=== PATIENT | female | born 1970 | race Caucasian/White ===

== ENCOUNTER → 2016-11-07 | Outpatient (CLI) | payer OTHER ==
[~2016-11-07] MED LIST: ACET-1256 PO; PENI-82 PO
== END | disposition home or self-care (01) ==
LOC: C.PAPS 13:30
PROVIDERS: ATTEND Obstetrics & Gynecology
DX: Z12.4 Encounter for screening for malignant neoplasm of cervix (principal); Z11.51 Encounter for screening for human papillomavirus (HPV)

== ENCOUNTER → 2016-11-23 | Outpatient (CLI) | payer OTHER ==
--- NOTE | 2016-11-23 13:34 | MAMMOGRAPHY REPORT ---
BILATERAL DIGITAL DIAGNOSTIC MAMMOGRAM TOMOSYNTHESIS WITH CAD AND TARGETED LEFT ULTRASOUND: 11/23/2016 CLINICAL HISTORY: Six-month follow-up of a possible area of distortion seen within the left 4:[address] on ultrasound. The patient presented for biopsy however the finding was not confidently visualize d therefore biopsy was not performed. The patient also had a biopsy of a left 10:00 breast mass in [facility] which yielded benign pathology. The patient reports no current complaints. TECHNIQUE: Breast tomosynthesis in addition to standard 2D mammography was performed. Current study was also evaluated with a Computer Aided Detection (CAD) system. Bilateral CC and MLO 2-D and tomosy nthesis images were obtained. COMPARISON: Comparison is made to exams dated: 05/25/2016 ultrasound biopsy, 01/04/2016 mammogram, 01/04/2016 ultrasound, 12/26/2015 mammogram, 12/22/2014 mammogram, and 11/16/2013 mammogram - [facility]. BREAST COMPOSITION: The tissue of both breasts is extremely dense, which lowers the sensitivity of m ammography. FINDINGS: Again noted is a circumscribed 7 mm mass within the left breast at approximately 9 to 10:00 anteriorly, which does not appear significantly changed compared to the December 2015 exam. A few ot her small round/oval circumscribed masses are also again noted bilaterally, which are considered ann marie gn given the multiplicity and bilaterality and likely represent cysts. There are no suspicious jd s, calcifications, or areas of architectural distortion noted in either breast. There has been no si gnificant interval change. Targeted ultrasound was performed of the hypoechoic area with questionable distortion seen within the left 4:00 periareolar breast. Sonographically normal tissue is seen in this region, without a suspi cious mass or architectural distortion noted. This finding is benign and compatible with normal tiss ue. Ultrasound was performed of the left 10:00 periareolar breast mass. Again noted is an lobulated circumscribed hypoechoic mass which measures 7 x 4 x 7 mm. The mass does not appear significantly c hanged compared to the December 2015 exam where the mass measured 6 x 5 x 7 mm. The mass was reported ly biopsied in [facility] and yielded benign pathology. Given the stability and benign pathology on bio psy, the mass is considered benign. IMPRESSION: ACR BI-RADS CATEGORY 2: BENIGN, TARGETED ULTRASOUND ACR BI-RADS CATEGORY 2: BENIGN The previously seen hypoechoic region with possible distortion in the left 4:00 breast is not evident on the current exam. Findings are benign and compatible with normal tissue. There is no mammograph ic or targeted sonographic evidence of malignancy. A 1 year screening mammogram is recommended. The patient has been verbally notified of the results. Approximately 10% of breast cancers are not detected with mammography. A negative mammographic report should not delay biopsy if a clinically suggestive mass is present. Yareli Jordan M.D. ah/:11/23/2016 11:24:35 Offset Press Operator: Sharda RATLIFF(R)(M), [facility] letter sent: Normal 1/2 BI-RADS Code: ACR BI-RADS Category 2: Benign Ultrasound BI-RADS: ACR BI-RADS Category 2: Benign
== END | disposition home or self-care (01) ==
LOC: C.MAMM 10:41
PROVIDERS: ATTEND Internal Medicine
DX: R92.8 Other abnormal and inconclusive findings on diagnostic imaging of breast (principal); N64.89 Other specified disorders of breast